=== PATIENT | female | born 1965 | race Caucasian/White ===

== ENCOUNTER → 2017-10-28 06:47 | Outpatient (CLI) | payer OTHER | END | disposition home or self-care (01) | LOC: LAB 06:47 | DX: I80.222 Phlebitis and thrombophlebitis of left popliteal vein (principal); I80.221 Phlebitis and thrombophlebitis of right popliteal vein; M79.7 Fibromyalgia; D68.8 Other specified coagulation defects; D68.61 Antiphospholipid syndrome; D68.62 Lupus anticoagulant syndrome; D68.59 Other primary thrombophilia; E72.11 Homocystinuria; E72.12 Methylenetetrahydrofolate reductase deficiency; D68.51 Activated protein C resistance; D68.52 Prothrombin gene mutation; D68.312 Antiphospholipid antibody with hemorrhagic disorder; D68.2 Hereditary deficiency of other clotting factors ==

== ENCOUNTER 2017-11-21 07:10 | Outpatient (CLI) | payer OTHER | END 2017-11-21 08:09 | disposition home or self-care (01) | LOC: SONOGRAMA 07:10 → MAMO-SONO 08:15 | DX: R13.19 Other dysphagia (principal); E07.89 Other specified disorders of thyroid ==

== ENCOUNTER → 2017-12-11 06:57 | Outpatient (CLI) | payer OTHER | END | disposition home or self-care (01) | LOC: LAB 06:57 | DX: D68.61 Antiphospholipid syndrome (principal); E72.11 Homocystinuria; E72.12 Methylenetetrahydrofolate reductase deficiency; I80.222 Phlebitis and thrombophlebitis of left popliteal vein; M79.7 Fibromyalgia; I80.221 Phlebitis and thrombophlebitis of right popliteal vein; I73.9 Peripheral vascular disease, unspecified; D50.8 Other iron deficiency anemias; D51.8 Other vitamin B12 deficiency anemias; I10 Essential (primary) hypertension; D55.0 Anemia due to glucose-6-phosphate dehydrogenase [G6PD] deficiency; D51.1 Vitamin B12 deficiency anemia due to selective vitamin B12 malabsorption with proteinuria; E03.8 Other specified hypothyroidism; E06.3 Autoimmune thyroiditis ==

== ENCOUNTER 2018-08-20 10:36 | Outpatient (CLI) | payer OTHER | END 2018-08-20 10:42 | disposition home or self-care (01) | LOC: LAB 10:36 | DX: D68.61 Antiphospholipid syndrome (principal); E72.11 Homocystinuria; E72.12 Methylenetetrahydrofolate reductase deficiency; I80.222 Phlebitis and thrombophlebitis of left popliteal vein; M79.7 Fibromyalgia; I80.221 Phlebitis and thrombophlebitis of right popliteal vein; I73.89 Other specified peripheral vascular diseases; E03.8 Other specified hypothyroidism; D50.8 Other iron deficiency anemias; D51.8 Other vitamin B12 deficiency anemias; I10 Essential (primary) hypertension; K90.89 Other intestinal malabsorption ==

== ENCOUNTER 2019-02-18 06:31 | Outpatient (CLI) | payer OTHER | END 2019-02-18 06:39 | disposition home or self-care (01) | LOC: LAB 06:31 | DX: E72.11 Homocystinuria (principal); E72.12 Methylenetetrahydrofolate reductase deficiency; M79.7 Fibromyalgia; I73.89 Other specified peripheral vascular diseases; E03.8 Other specified hypothyroidism; D50.8 Other iron deficiency anemias; D51.8 Other vitamin B12 deficiency anemias; I10 Essential (primary) hypertension; K90.89 Other intestinal malabsorption; I80.223 Phlebitis and thrombophlebitis of popliteal vein, bilateral ==

== ENCOUNTER 2019-04-22 06:50 | Outpatient (CLI) | payer OTHER | END 2019-04-22 15:55 | disposition home or self-care (01) | LOC: LAB 06:50 | DX: I10 Essential (primary) hypertension (principal); E03.8 Other specified hypothyroidism; E55.9 Vitamin D deficiency, unspecified; L63.8 Other alopecia areata; R53.1 Weakness; D50.8 Other iron deficiency anemias; E72.11 Homocystinuria; E72.12 Methylenetetrahydrofolate reductase deficiency; M79.7 Fibromyalgia; I73.89 Other specified peripheral vascular diseases; R19.5 Other fecal abnormalities; D51.8 Other vitamin B12 deficiency anemias; I80.223 Phlebitis and thrombophlebitis of popliteal vein, bilateral ==

== ENCOUNTER 2019-04-22 07:26 | Outpatient (CLI) | payer OTHER | END 2019-04-22 07:36 | disposition home or self-care (01) | LOC: RAD 07:26 → MAMO-SONO 07:45 | DX: E72.11 Homocystinuria (principal); E72.12 Methylenetetrahydrofolate reductase deficiency; I80.222 Phlebitis and thrombophlebitis of left popliteal vein; I73.89 Other specified peripheral vascular diseases; E03.8 Other specified hypothyroidism; R13.10 Dysphagia, unspecified; R53.1 Weakness; M54.2 Cervicalgia; E04.1 Nontoxic single thyroid nodule ==

== ENCOUNTER 2020-05-25 06:56 | Outpatient (CLI) | payer OTHER | END 2020-05-25 07:09 | disposition home or self-care (01) | LOC: LAB 06:56 | PROVIDERS: ATTEND Internal Medicine Hematology & Oncology | DX: E72.11 Homocystinuria (principal); E72.12 Methylenetetrahydrofolate reductase deficiency; I80.222 Phlebitis and thrombophlebitis of left popliteal vein; M79.7 Fibromyalgia; I80.221 Phlebitis and thrombophlebitis of right popliteal vein; I73.89 Other specified peripheral vascular diseases; E03.8 Other specified hypothyroidism; D50.8 Other iron deficiency anemias; D51.8 Other vitamin B12 deficiency anemias; I10 Essential (primary) hypertension; K90.89 Other intestinal malabsorption ==

== ENCOUNTER 2020-11-23 06:29 | Outpatient (CLI) | payer OTHER | END 2020-11-23 06:36 | disposition home or self-care (01) | LOC: LAB 06:29 | PROVIDERS: ATTEND Internal Medicine Hematology & Oncology | DX: D50.8 Other iron deficiency anemias (principal); I10 Essential (primary) hypertension; R74.02 Elevation of levels of lactic acid dehydrogenase [LDH]; K76.89 Other specified diseases of liver; D51.8 Other vitamin B12 deficiency anemias; E55.9 Vitamin D deficiency, unspecified; E03.8 Other specified hypothyroidism; E72.11 Homocystinuria ==

== ENCOUNTER → 2021-05-24 06:21 | Outpatient (CLI) | payer OTHER | END | disposition home or self-care (01) | LOC: LAB 06:21 | PROVIDERS: ATTEND Internal Medicine Hematology & Oncology | DX: D68.61 Antiphospholipid syndrome (principal); E72.12 Methylenetetrahydrofolate reductase deficiency; I80.222 Phlebitis and thrombophlebitis of left popliteal vein; M79.7 Fibromyalgia; I73.89 Other specified peripheral vascular diseases; E03.8 Other specified hypothyroidism; D50.8 Other iron deficiency anemias; D51.8 Other vitamin B12 deficiency anemias ==

== ENCOUNTER 2021-10-18 06:23 | Outpatient (CLI) | payer OTHER | END 2021-10-18 06:24 | disposition home or self-care (01) | LOC: LAB 06:23 | PROVIDERS: ATTEND Internal Medicine Hematology & Oncology | DX: D50.8 Other iron deficiency anemias (principal); I10 Essential (primary) hypertension; R74.02 Elevation of levels of lactic acid dehydrogenase [LDH]; K76.89 Other specified diseases of liver; D51.8 Other vitamin B12 deficiency anemias; E55.9 Vitamin D deficiency, unspecified; E03.8 Other specified hypothyroidism; D68.59 Other primary thrombophilia; E72.11 Homocystinuria; E72.12 Methylenetetrahydrofolate reductase deficiency; I80.222 Phlebitis and thrombophlebitis of left popliteal vein; M79.7 Fibromyalgia; I73.9 Peripheral vascular disease, unspecified ==

== ENCOUNTER 2022-04-25 07:04 | Outpatient (CLI) | payer OTHER | END 2022-04-25 07:05 | disposition home or self-care (01) | LOC: LAB 07:04 | PROVIDERS: ATTEND Internal Medicine Hematology & Oncology | DX: D50.8 Other iron deficiency anemias (principal); I10 Essential (primary) hypertension; R74.02 Elevation of levels of lactic acid dehydrogenase [LDH]; K76.89 Other specified diseases of liver; D51.8 Other vitamin B12 deficiency anemias; E55.9 Vitamin D deficiency, unspecified; E03.8 Other specified hypothyroidism; D68.59 Other primary thrombophilia; E72.11 Homocystinuria; C56.9 Malignant neoplasm of unspecified ovary; R97.8 Other abnormal tumor markers; R97.1 Elevated cancer antigen 125 [CA 125]; I73.9 Peripheral vascular disease, unspecified; M79.7 Fibromyalgia; I80.223 Phlebitis and thrombophlebitis of popliteal vein, bilateral ==

== ENCOUNTER → 2022-10-17 06:44 | Outpatient (CLI) | payer OTHER | END | disposition home or self-care (01) | LOC: LAB 06:44 | PROVIDERS: ATTEND Internal Medicine Hematology & Oncology | DX: D50.8 Other iron deficiency anemias (principal); I10 Essential (primary) hypertension; R74.02 Elevation of levels of lactic acid dehydrogenase [LDH]; K76.89 Other specified diseases of liver; D51.8 Other vitamin B12 deficiency anemias; E55.9 Vitamin D deficiency, unspecified; E03.8 Other specified hypothyroidism; E72.11 Homocystinuria; C56.9 Malignant neoplasm of unspecified ovary; R97.8 Other abnormal tumor markers; R97.1 Elevated cancer antigen 125 [CA 125]; E72.12 Methylenetetrahydrofolate reductase deficiency; I80.223 Phlebitis and thrombophlebitis of popliteal vein, bilateral; M79.7 Fibromyalgia; I71.9 Aortic aneurysm of unspecified site, without rupture ==

== ENCOUNTER 2023-10-23 06:11 | Outpatient (CLI) | payer OTHER ==
[2023-10-23 07:17] LABS: HEMATOCRIT 37.6 % (36.0-45.00); HEMOGLOBIN 12.6 g/dL (12.0-15.00); MEAN CELL VOLUME 90.6 fL (80.00-100.00); MEAN CORPUSCULAR HEMOGLOBIN 30.3 pg (27.00-32.0); MEAN CORPUSCULAR HGB CONC 33.5 g/dl (32.0-36.0); PLATELET COUNT 217 K/uL (150-450); RED BLOOD COUNT 4.14 M/uL (4.00-6.00)
[2023-10-23 09:17] LABS: ALBUMIN 4.3 gm/dL (3.4-5.0); BILIRUBIN TOTAL 0.56 mg/dL (0.3-1.2); CALCIUM 9.9 mg/dL (8.5-10.1); CREATININE SERUM 0.58 mg/dL (0.55-1.02); GFR 107.54; GLOBULINA 3.6 G/DL (2.4-3.5); POTASSIUM 4.32 mEq/L (3.5-5.1); T4 FREE 0.92 NG/ML (0.76-1.46); TOTAL PROTEIN 7.9 gm/dL (6.4-8.2)
[2023-10-23 09:22] LABS: TSH 0.271 uIU/mL (0.358-3.74)
[2023-10-23 10:00] LABS: FOLIC ACID > 20.00 ng/ml (4.78-20); VITAMIN D3 25 HYDROXY 57.36 ng/ml (30-120)
== END 2023-10-23 06:22 | disposition home or self-care (01) ==
LOC: LAB 06:11
PROVIDERS: ATTEND Internal Medicine Hematology & Oncology
DX: D50.8 Other iron deficiency anemias (principal); I10 Essential (primary) hypertension; K76.89 Other specified diseases of liver; D51.8 Other vitamin B12 deficiency anemias; E55.9 Vitamin D deficiency, unspecified; D68.61 Antiphospholipid syndrome; E03.8 Other specified hypothyroidism; E72.12 Methylenetetrahydrofolate reductase deficiency; I80.221 Phlebitis and thrombophlebitis of right popliteal vein; I73.9 Peripheral vascular disease, unspecified

== ENCOUNTER → 2024-08-19 06:19 | Outpatient (CLI) | payer OTHER ==
[2024-08-19 07:21] LABS: HEMATOCRIT 36.8 % (36.0-45.00); HEMOGLOBIN 12.3 g/dL (12.0-15.00); MEAN CELL VOLUME 93.2 fL (80.00-100.00); MEAN CORPUSCULAR HEMOGLOBIN 31.2 pg (27.00-32.0); MEAN CORPUSCULAR HGB CONC 33.5 g/dl (32.0-36.0); PLATELET COUNT 248 K/uL (150-450); RED BLOOD COUNT 3.95 M/uL (4.00-6.00); RED CELL DISTRIBUTION WIDTH 13.8 % (11.5-14.5)
[2024-08-19 08:00] LABS: ALBUMIN 3.7 gm/dL (3.4-5.0); ALKALINE PHOSPHATASE 80 U/L (50-136); ALT/SGPT 18 U/L (12-78); ANION GAP 10 (10.0-20.0); AST/SGOT < 3 U/L (15-37); BLOOD UREA NITROGEN 15 mg/dL (7-18); BUN CREA RATIO 21 (7.0-25.0); CALCIUM 9.8 mg/dL (8.5-10.1); CARBON DIOXIDE 24 mEq/L (21-32); CHLORIDE 110 mmol/L (98-107); GFR 86.56; GLOBULINA 3.2 G/DL (2.4-3.5); GLUCOSE FASTING 187 mg/dL (65-100); LDH 151 U/L (84-246); OSMOLALITY SERUM 285 MOSM/KG (275-295); POTASSIUM 4.16 mEq/L (3.5-5.1); SODIUM 140 mmol/L (136-145); T4 FREE 0.94 NG/ML (0.76-1.46); TOTAL IRON BINDING CAPACITY 403 ug/dl (250-450); TOTAL PROTEIN 6.9 gm/dL (6.4-8.2); TSH 0.383 uIU/mL (0.358-3.74)
[2024-08-19 09:41] LABS: FOLIC ACID 19.26 ng/ml (4.78-20); VITAMIN D3 25 HYDROXY 53.12 ng/ml (30-120)
== END | disposition home or self-care (01) ==
LOC: LAB 06:19
PROVIDERS: ATTEND Internal Medicine Hematology & Oncology
DX: E72.11 Homocystinuria (principal); E72.12 Methylenetetrahydrofolate reductase deficiency; I80.222 Phlebitis and thrombophlebitis of left popliteal vein; M79.7 Fibromyalgia; I80.221 Phlebitis and thrombophlebitis of right popliteal vein; I73.9 Peripheral vascular disease, unspecified; E03.8 Other specified hypothyroidism; I10 Essential (primary) hypertension; R74.02 Elevation of levels of lactic acid dehydrogenase [LDH]; K76.89 Other specified diseases of liver; E11.9 Type 2 diabetes mellitus without complications; E55.9 Vitamin D deficiency, unspecified

== ENCOUNTER 2025-02-25 06:07 | Outpatient (CLI) | payer OTHER ==
[2025-02-25 07:38] LABS: BASO % 0.5 % (0.1-1.2); EOS # 0.16 (0.04-0.54); EOS % 2.0 % (0.7-7.0); LYMPH # 2.22 (1.18-3.74); LYMPH % 28.1 % (19.3-53.1); MEAN PLATELET VOLUME 11.00 fl (9.4-12.4); MONO # 0.73 (0.24-0.82); MONO % 9.2 % (4.7-12.5); NEUT # 4.73 (1.56-6.13); NEUT % 59.8 % (34.0-71.1); RED CELL DISTRIBUTION WIDTH 14.1 % (11.6-14.4)
[2025-02-25 08:18] LABS: % SATURACION 20.4 % (15-50); ALT/SGPT 27.0 U/L (12-78); AST/SGOT 7.0 U/L (15-37); BILIRUBIN TOTAL 0.65 mg/dL (0.3-1.2); BUN CREA RATIO 19.0 (7.0-25.0); CREATININE SERUM 0.62 mg/dL (0.55-1.02); FE 77.0 ug/dl (50-170); GFR 99.21; GLOBULINA 3.1 G/DL (2.4-3.5); GLUCOSE FASTING 91.0 mg/dL (65-100); LDH 123.0 U/L (84-246); OSMOLALITY SERUM 282.0 MOSM/KG (275-295); T4 FREE 0.89 NG/ML (0.76-1.46); TSH 2.44 uIU/mL (0.358-3.74)
[2025-02-25 14:13] LABS: FOLIC ACID 15.03 ng/ml (4.78-20); VITAMIN D3 25 HYDROXY 46.16 ng/ml (30-120)
== END 2025-02-25 06:13 | disposition home or self-care (01) ==
LOC: LAB 06:07
PROVIDERS: ATTEND Internal Medicine Hematology & Oncology
DX: D50.8 Other iron deficiency anemias (principal); I10 Essential (primary) hypertension; R74.02 Elevation of levels of lactic acid dehydrogenase [LDH]; K76.89 Other specified diseases of liver; E11.9 Type 2 diabetes mellitus without complications; E55.9 Vitamin D deficiency, unspecified; E03.8 Other specified hypothyroidism; D68.59 Other primary thrombophilia; E72.11 Homocystinuria; E72.12 Methylenetetrahydrofolate reductase deficiency; I80.222 Phlebitis and thrombophlebitis of left popliteal vein; M79.7 Fibromyalgia; I80.221 Phlebitis and thrombophlebitis of right popliteal vein; I73.9 Peripheral vascular disease, unspecified